=== PATIENT | female | born 1995 | race Caucasian/White ===

== ENCOUNTER 2017-12-04 23:31 | Emergency (ER) | payer OTHER ==
[2017-12-04] MEDS ORDERED: LORAZEPAM INJ 2 MG/1 ML VIAL IV ONE (23:42)
[2017-12-04] MEDS ORDERED: PROMETHAZINE HCL INJ 25 MG/1 ML VIAL IM ONE (23:47)
[2017-12-04] MEDS ORDERED: NORMAL SALINE 1000 ML 1,000 ML IV ONE (23:47)
[2017-12-04] MEDS ORDERED: DIPHENHYDRAMINE HCL 50 MG/ML VIAL IV ONE (23:47)
--- NOTE | 2017-12-04 23:50 | ER Document Report ---
ED General - General Chief Complaint: Abdominal Pain Stated Complaint: ABDOMINAL PAIN, SHORTNESS OF BREATH Time Seen by Provider: 12/04/17 23:39 Notes: Patient is a 22-year-old female presents with complaint of severe right upper quadrant abdominal pain. She said she had this pain once before when she had gallbladder disease and had her gallbladder removed. She vomiting. No blood or emesis. No blood in her stool. Pain is right upper quadrant and right flank. No lower abdominal tenderness. No dysuria. No abnormal vaginal discharge or bleeding. She did have delivery of a child vaginally 1 month ago. She has been sexually active since then. Past Medical History - Social History Smoking Status: Unknown if Ever Smoked Frequency of alcohol use: None Drug Abuse: None Family History: Reviewed & Not Pertinent Review of Systems - Review of Systems Notes: My Normal Review Basic REVIEW OF SYSTEMS: CONSTITUTIONAL : Denies fever, chills, or sweats. Denies recent illness. EENT: Denies eye, ear, throat, or mouth pain or symptoms. Denies nasal or sinus congestion. CARDIOVASCULAR: Denies chest pain. RESPIRATORY: Denies cough, cold, or chest congestion. Denies shortness of breath, difficulty breathing, or wheezing. GASTROINTESTINAL: Right upper quadrant abdominal pain. Some vomiting. GENITOURINARY: Denies difficulty urinating, painful urination, burning, frequency, or blood in urine. FEMALE GENITOURINARY: Denies vaginal bleeding, abnormal or irregular periods. MUSCULOSKELETAL: Denies neck or back pain or joint pain or swelling. SKIN: Denies rash or skin lesions. NEUROLOGICAL: Denies altered mental status or loss of consciousness. Denies headache. Denies weakness or paralysis or loss of use of either side. Denies problems with gait or speech. Denies sensory or motor loss. ALL OTHER SYSTEMS REVIEWED AND NEGATIVE. Physical Exam - Vital signs Vitals: Temp 97.5 F 12/04/17 23:37 - Notes Notes: General Appearance: Well nourished, alert, cooperative, no acute distress, moderate obvious discomfort. Vitals: reviewed, See vital signs table. Head: no swelling or tenderness to the head Eyes: PERRL, EOMI, Conjuctiva clear Mouth: No decreasd moisture Lungs: No wheezing, No rales, No rhonci, No accessory muscle use, good air exchange bilaterally. Heart: Normal rate, Regular rythm, No murmur, no rub Abdomen: Normal BS, soft, No rigidity, some pain to palpation of her right upper quadrant and right flank area. mild guarding, no rebound, no abdominal masses, no organomegaly Extremities: strength 5/5 in all extremities, good pulses in all extremities, no swelling or tenderness in the extremities, no edema. Skin: warm, dry, appropriate color, no rash Neuro: speech clear, oriented x 3, normal affect, responds appropriately to questions. Course - Re-evaluation Re-evalutation: 12/04/17 23:49 Patient presents with severe pain that is in the right upper quadrant says it feels just like when she has spasm of her gallbladder. She is also gallbladder removed. She has never had pain like this since then. She is in severe pain. She has pain palpation only over the right upper quadrant. The remainder of abdomen is nontender. I did do a quick bedside FAST exam which is negative for free fluid in the abdomen. I have ordered labs. This could be kidney stone however the pain radiates into epigastric region which would be very atypical for kidney stone. Patient just had a normal vaginal delivery one month ago but she is are been sexually active without protection therefore she could be again. Of ordered a test. Of ordered blood work looking at her liver and pancreas. She refuses any opiate medications whatsoever. She says that it was make her pain worse and cause her to have chest pain. I therefore will not order opiate medications. I do not want ordered Toradol at this time in case she requires some sort of surgical intervention. I have ordered Benadryl, some Ativan as the patient is hyperventilating, and some Phenergan for her nausea. 12/05/17 01:30 On reevaluation patient sleeping in the bed with no pain in no distress. She looks very comfortable and well. Vital signs are stable. Heart rate is much improved at 78. Blood work thus far is negative. Urinalysis is pending. 12/05/17 01:41 Patient is awake again and her pain started to return. Her urinalysis does show hematuria. I will order a CT scan to look for evidence of kidney stone. I will order a dose of Toradol now that we know that she is not . 12/05/17 06:42 All patient's studies came back negative. The exact cause of her pain is not clear. She says she feels much improved and she only has very mild pain. She is very comfortable to examine her abdomen is soft. Informed at this time that there is possibility this could been a kidney stone that she passed being that there was some blood in her urine. I am still not convinced that this is 100% with this is) a possibility. I informed her being that we do not know exactly because her pain earlier she must return to the ER in 24 hours for reevaluation if she still having any pain whatsoever. I informed her she should return to ER immediately if she has severe worsening pain, vomiting, fevers, or feels that she is worsening in any way. Patient agrees with plan will be discharged home. Dictation of this chart was performed using voice recognition software; therefore, there may be some unintended grammatical errors. - Vital Signs Vital signs: Temp Pulse Resp BP Pulse Ox 98.5 F 14 107/66 98 12/05/17 05:13 12/05/17 05:13 12/05/17 05:13 12/05/17 05:13 - Laboratory Result Diagrams: 12/04/17 23:45 12/04/17 23:45 Laboratory results interpreted by me: 12/04/17 12/04/17 12/05/17 23:45 23:45 00:14 Hgb 11.9 L RDW 14.7 H Sodium 146.4 H Potassium 3.4 L Chloride 109 H Carbon Dioxide 21 L AST 46 H Urine Blood MODERATE H Discharge - Discharge Clinical Impression: Abdominal pain Qualifiers: Abdominal location: right upper quadrant Qualified Code(s): R10.11 - Right upper quadrant pain Condition: Good Disposition: HOME, SELF-CARE Additional Instructions: Your current workup for your abdominal pain did not show any concerning findings. You could have potentially recently past a kidney stone. I suspect this is possible being that your CT scan was negative yet you have some bloody urine and you were having severe flank and right sided abdominal pain. There is no way to tell this for sure. I am glad your pain is improving; however, I want you to return to the ER in 24 hours for reevaluation if you are still having any pain whatsoever so we can repeat your exam and repeat your lab testing to make sure nothing is worsening. Please return to the ER immediately if you have severe worsening pain, vomiting, or fevers. Do not take other NSAID medicaitons such as Aspirin, Motrin, Ibuprofen, Aleve, or Advil when taking Toradol. It is okay to take Tylenol. Prescriptions: Ketorolac Tromethamine [Toradol 10 mg Tablet] 10 mg PO Q8HP PRN #8 tablet PRN Reason: Forms: Return to Work
[2017-12-05 00:01] LABS: ABSOLUTE EOSINOPHILS # (AUTO) 0.1 10^3/uL (0.0-0.6); ABSOLUTE LYMPHOCYTES (AUTO) 2.1 10^3/uL (0.5-4.7); ABSOLUTE MONOCYTES (AUTO) 0.8 10^3/uL (0.1-1.4); ABSOLUTE NEUT (AUTO) 5.3 10^3/uL (1.7-8.2); BASOPHILS % (AUTO) 0.5 % (0-2); EOSINOPHILS % (AUTO) 0.9 % (0-6); HEMATOCRIT 36.2 % (36.0-47.0); HEMOGLOBIN 11.9 g/dL (12.0-15.5); LYMPHOCYTES % (AUTO) 25.1 % (13-45); MEAN CORPUSCULAR HEMOGLOBIN 27.6 pg (27.0-33.4); MEAN CORPUSCULAR HGB CONC 32.9 g/dL (32.0-36.0); MEAN CORPUSCULAR VOLUME 84 fl (80-97); MONOCYTES % (AUTO) 9.4 % (3-13); PLATELET COUNT 230 10^3/uL (150-450); RED BLOOD COUNT 4.31 10^6/uL (3.72-5.28); RED CELL DISTRIBUTION WIDTH 14.7 % (11.5-14.0); SEGMENTED NEUTROPHILS % (AUTO) 64.1 % (42-78); TOTAL CELLS COUNTED % (AUTO) 100 %; WHITE BLOOD COUNT 8.3 10^3/uL (4.0-10.5)
[2017-12-05 00:56] LABS: APPEARANCE,URINE CLEAR; BILIRUBIN,URINE NEGATIVE (NEGATIVE); COLOR,URINE COLORLESS; GLUCOSE, URINE NEGATIVE (NEGATIVE); KETONES,URINE NEGATIVE (NEGATIVE); LEUKOCYTE ESTERASE,URINE NEGATIVE (NEGATIVE); NITRITE,URINE NEGATIVE (NEGATIVE); PROTEIN,URINE NEGATIVE (NEGATIVE); URINE SPECIFIC GRAVITY 1.005; UROBILINOGEN,URINE NEGATIVE mg/dL (<2.0)
[2017-12-05 01:00] LABS: LIPASE 162.4 U/L (23-300)
[2017-12-05 01:01] LABS: BLOOD UREA NITROGEN 11 mg/dL (7-20); CALCIUM 9.4 mg/dL (8.4-10.2); CARBON DIOXIDE 21 mmol/L (22-30); CHLORIDE 109 mmol/L (98-107); GLUCOSE 94 mg/dL (75-110); POTASSIUM 3.4 mmol/L (3.6-5.0)
[2017-12-05 01:02] LABS: ALANINE AMINOTRANSFERASE 41 U/L (9-52); ALBUMIN 4.2 g/dL (3.5-5.0); ALKALINE PHOSPHATASE 60 U/L (38-126); ANION GAP 16 (5-19); ASPARTATE AMINO TRANSFERASE 46 U/L (14-36); BILIRUBIN,DIRECT 0.2 mg/dL (0.0-0.4); BILIRUBIN,TOTAL 0.3 mg/dL (0.2-1.3); SODIUM 146.4 mmol/L (137-145)
[2017-12-05 01:03] LABS: TOTAL PROTEIN 6.9 g/dL (6.3-8.2)
[2017-12-05] MEDS ORDERED: KETOROLAC TROMETHAMINE INJ/PF 30 MG/1 ML SDV IV ONE (01:40)
--- NOTE | 2017-12-05 02:11 | RADIOLOGY REPORT (SQ) ---
EXAM DESCRIPTION: CT ABDOMEN WITHOUT IV CONTRAST COMPLETED DATE/TME: 12/05/2017 01:39 CLINICAL HISTORY: right flank pain, hematuria COMPARISON: None Available. TECHNIQUE: CT of the abdomen and pelvis without IV contrast. Evaluation of the solid organs and vasculature is suboptimal due to lack of IV contrast. Significant motion artifact as well as artifact from leads overlying the abdomen DLP: 288.02 mGy-cm FINDINGS: Lung Bases: The visualized lung bases are clear. Bones: No destructive bone lesions identified. Abdomen: Liver: The liver has normal size and density. Gallbladder: No calcified gallstones. Spleen, Pancreas, and Adrenal Glands: The spleen, pancreas, and adrenal glands are unremarkable. Kidneys: The kidneys have normal size and contour without evidence of hydronephrosis. No obstructing ureteral calculi. Vasculature: The aorta and IVC have normal caliber and position. Stomach: The stomach and duodenum have normal course. Other: No free intraperitoneal air. No free fluid or lymphadenopathy. Pelvis: Bladder: Urinary bladder is unremarkable. Bowel: No dilated loops of large or small bowel. Appendix: Normal appendix. Pelvis: Uterus is not enlarged. IMPRESSION: 1. No definite acute inflammatory or obstructive process identified. This exam was performed according to our departmental dose-optimization program, which includes automated exposure control, adjustment of the mA and/or kV according to patient size and/or use of iterative reconstruction technique.
--- NOTE | 2017-12-05 05:14 | RADIOLOGY REPORT (SQ) ---
EXAM DESCRIPTION: US PELVIS COMPLETED DATE/TME: 12/05/2017 02:46 CLINICAL HISTORY: 22 years, Female, pelvic pain. Previous vaginal delivery 10/16/2017. COMPARISON: None. TECHNIQUE: Complete pelvic ultrasound obtained with transvaginal imaging. FINDINGS: The uterus measures 8.9 x 4.7 x 7.1 cm. Cervical length of 2.3 cm. The cervix is closed. Endometrial thickness of 1.1 cm. Trace endometrial fluid. No myometrial abnormalities. No significant increased blood flow identified to the endometrium. The right ovary measures 3.2 x 2.1 x 2.1 cm. The left ovary is not identified. Limited color and spectral Doppler imaging demonstrates flow in the right ovary. No large adnexal masses. No free pelvic fluid. IMPRESSION: 1. Trace amount of endometrial fluid. No other abnormalities identified in the pelvis. 2011 [employer]- All Rights Reserved
--- NOTE | 2017-12-05 05:15 | RADIOLOGY REPORT (SQ) ---
EXAM DESCRIPTION: US ABDOMEN DOPPLER LIMITED COMPLETED DATE/TME: 12/05/2017 02:45 CLINICAL HISTORY: ruq pain COMPARISON: None. TECHNIQUE: Real-time sonographic images of the right upper abdomen were obtained using a curved multihertz transducer. FINDINGS: Pancreas: The visualized portions of the pancreas are unremarkable. Vascular: The visualized portions of the aorta and IVC are unremarkable. Liver: The liver has normal contour and echogenicity. Hepatopedal flow in the portal vein. Findings confirmed with color and spectral Doppler imaging. The common bile duct measures 0.2 cm. Gallbladder: Prior cholecystectomy. No abnormalities noted in the gallbladder fossa. Right Kidney: The right kidney measures 9.6 cm in length. No hydronephrosis, solid renal mass, or shadowing calculi. IMPRESSION: 1. Prior cholecystectomy. 2. No acute sonographic abnormality identified in the right upper abdomen.
[2017-12-05] MEDS ORDERED: ONDANSETRON ODT 4 MG TAB (6 TAB/ER DISP) PO PRN (05:31)
[2017-12-05 05:37] VITALS: BP 107/66
== END 2017-12-05 05:46 | disposition home or self-care (01) ==
LOC: ER 23:31
DX: O90.89 Other complications of the puerperium, not elsewhere classified (principal); R10.11 Right upper quadrant pain; R10.9 Unspecified abdominal pain; R11.2 Nausea with vomiting, unspecified; R06.4 Hyperventilation; R31.9 Hematuria, unspecified; Z90.49 Acquired absence of other specified parts of digestive tract
CPT/HCPCS: 99284; 96372; 96361; 96374; 96375; 36415; 83605; 83690; 84703; 85025; 80053; 81001; 76705; 76830; 93976; 76380; J1200; J1885; J2060; J2550; J7030